=== PATIENT | male | born 1995 | race Caucasian/White ===

== ENCOUNTER 2017-11-19 16:58 | Emergency (ER) | payer OTHER ==
[~2017-11-19] VITALS: Ht 180.3 cm; Wt 65.7 kg
[2017-11-19 17:26] VITALS: TEMP 36.7; Ht 180.3 cm; Wt 65.7 kg
[2017-11-19] MEDS ORDERED: LISD30CA4 PO (17:54)
[2017-11-19 18:39] LABS: BASO % 0.5 %; BASO ABS # 0.03 K/uL (0-0.2); EOS % 1.8 %; EOS ABS # 0.11 K/uL (0-0.5); HEMATOCRIT 47.5 % (42-52); HEMOGLOBIN 16.1 g/dL (14.0-18.0); IG# 0.01 K/uL (0.00-0.02); LYMPH % 28.7 %; MEAN CELL VOLUME 91.7 fL (80-100); MEAN CORPUSCULAR HEMOGLOBIN 31.1 pg (25-34); MEAN CORPUSCULAR HGB CONC 33.9 g/dl (32-36); MEAN PLATELET VOLUME 11.2 fL (7.4-10.4); MONO % 8.9 %; MONO ABS # 0.56 K/uL (0.11-0.59); NEUT % 59.9 %; NEUT ABS # 3.77 K/uL (1.4-6.5); PLATELET COUNT 241 K/uL (130-400); RED CELL DISTRIBUTION WIDTH CV 12.6 % (11.5-14.5); RED CELL DISTRIBUTION WIDTH SD 42.7 fL (36.4-46.3); WHITE BLOOD COUNT 6.28 K/uL (4.8-10.8)
[2017-11-19 18:58] LABS: ALBUMIN 4.3 gm/dl (3.4-5.0); ALT/SGPT 34 U/L (12-78); AST/SGOT 20 U/L (15-37); BLOOD UREA NITROGEN 13 mg/dl (7-18); CALCIUM 9.3 mg/dl (8.5-10.1); CARBON DIOXIDE 28 mmol/L (21-32); GLUCOSE 89 mg/dl (70-99); POTASSIUM 4.1 mmol/L (3.5-5.1); SODIUM 136 mmol/L (136-145)
[2017-11-19 19:00] LABS: ALKALINE PHOSPHATASE 83 U/L (45-117); TOTAL PROTEIN 7.9 gm/dl (6.4-8.2)
[2017-11-19 19:10] VITALS: BP 156/85; PULSE 72; O2SAT 99
--- NOTE | 2017-11-19 19:38 | EMERGENCY ROOM VISIT NOTE ---
History First contact with patient: 17:33 Chief Complaint: OTHER COMPLAINT Stated Complaint: MANY DARK MARKING ON ABD AREA VERY PAINFUL History of Present Illness The patient is a 22 year old male who presents to the Emergency Room via private vehicle with complaints of "many dark markings on abdomen, very painful ". The patient states that upon returning from spring in [place] on Friday he started noticing some small dark patches on his skin. He states that they were first on his abdomen and they seem to be on the rest of his body. He denies any easy bleeding of the gums or rectal bleeding. None on the rest of his body. No pattern or even distribution. He notes a history of nosebleeds chronically but that is not new. He does note some alcohol consumption during the trip but nothing excessive. He does not believe these are bruises. He denies trauma. He denies any medical problems. No vision, breathing, digestion , urination, bowel movement or penile discharge noted. Review of Systems A complete 10-point Review of Systems was discussed with the patient, with pertinent positives and negatives listed in the History of Present Illness. All remaining Review of Systems questions can be considered negative unless otherwise specified. Past Medical/Surgical History No pertinent Family History No pertinent Social History Smoking Status: Current Every Day Smoker Pt. is a [employer] Current/Historical Medications Scheduled Lisdexamfetamine Dimesylate (Vyvanse), 30 MG PO DAILY Physical Exam Vital Signs Date Time Temp Pulse Resp B/P (MAP) Pulse Ox O2 Delivery O2 Flow Rate FiO2 11/19/17 19:10 72 16 156/85 99 Room Air 11/19/17 17:26 36.7 81 18 120/79 98 Room Air Physical Exam VITAL SIGNS - Vital signs and nursing notes were reviewed. Stable. GENERAL - 22-year-old male appearing his stated age who is in no acute distress. Communicates well with provider and answers questions appropriately. SKIN -there are various skin changes on the patient's anterior chest and abdomen and R biceps region. They are darker in nature. They are a dark brown. There is no symmetrical distribution or evidence of petechial rash. No bleeding from the skin. When I do press on these areas with an alcohol prep pad the darkness appears to fade with wiping with alcohol prep pad on some of the skin changes. The largest areas are about 3 cm in diameter on the patient' s right biceps region. There are a few on the chest which are centimeter in size. They are of different shapes. It appears that there was even one that is linear like a scratch. HEAD - NC/AT. EYES - Sclera anicteric. No hyphema. EARS - No deformities of external structures noted on gross examination bilaterally. No blood from the ears on my exam. NOSE - Midline and without cyanosis. No epistaxis or purulent drainage noted upon my exam, however later in the patient's stay he developed a minimal L nostril nosebleed. MOUTH/OROPHARYNX - Without perioral cyanosis. No skin changes intraorally. NECK - Neck with FROM. ABDOMEN - Abdominal contour normal without pulsations or visible masses. Very minimal anterior abdominal pain overlying the rectus abdominis musculature. No deep tenderness noted. EXTREMITIES - No clubbing or peripheral cyanosis. +5/5 strength noted in UE/LE bilaterally. NEUROLOGIC - Cranial nerves II through XII grossly intact. PSYCH - Pt is very pleasant and interacts well with examiner. Medical Decision & Procedures Laboratory Results 11/19/17 18:02 Red Blood Count 5.18, Mean Corpuscular Volume 91.7, Mean Corpuscular Hemoglobin 31.1, Mean Corpuscular Hemoglobin Concent 33.9, Mean Platelet Volume 11.2, Neutrophils (%) (Auto) 59.9, Lymphocytes (%) (Auto) 28.7, Monocytes (%) (Auto) 8.9, Eosinophils (%) (Auto) 1.8, Basophils (%) (Auto) 0.5, Neutrophils # (Auto) 3.77, Lymphocytes # (Auto) 1.80, Monocytes # (Auto) 0.56, Eosinophils # (Auto) 0.11, Basophils # (Auto) 0.03 11/19/17 18:02 Test 11/19/17 18:02 White Blood Count 6.28 K/uL (4.8-10.8) Red Blood Count 5.18 M/uL (4.7-6.1) Hemoglobin 16.1 g/dL (14.0-18.0) Hematocrit 47.5 % (42-52) Mean Corpuscular Volume 91.7 fL (80-100) Mean Corpuscular Hemoglobin 31.1 pg (25-34) Mean Corpuscular Hemoglobin Concent 33.9 g/dl (32-36) Platelet Count 241 K/uL (130-400) Mean Platelet Volume 11.2 fL (7.4-10.4) Neutrophils (%) (Auto) 59.9 % Lymphocytes (%) (Auto) 28.7 % Monocytes (%) (Auto) 8.9 % Eosinophils (%) (Auto) 1.8 % Basophils (%) (Auto) 0.5 % Neutrophils # (Auto) 3.77 K/uL (1.4-6.5) Lymphocytes # (Auto) 1.80 K/uL (1.2-3.4) Monocytes # (Auto) 0.56 K/uL (0.11-0.59) Eosinophils # (Auto) 0.11 K/uL (0-0.5) Basophils # (Auto) 0.03 K/uL (0-0.2) RDW Standard Deviation 42.7 fL (36.4-46.3) RDW Coefficient of Variation 12.6 % (11.5-14.5) Immature Granulocyte % (Auto) 0.2 % Immature Granulocyte # (Auto) 0.01 K/uL (0.00-0.02) Erythrocyte Sedimentation Rate 5 mm/hr (0-14) Anion Gap 5.0 mmol/L (3-11) Est Creatinine Clear Calc Drug Dose 120.7 ml/min Estimated GFR () 141.0 Estimated GFR (Non- 121.7 BUN/Creatinine Ratio 14.7 (10-20) Calcium Level 9.3 mg/dl (8.5-10.1) Total Bilirubin 0.4 mg/dl (0.2-1) Aspartate Amino Transf (AST/SGOT) 20 U/L (15-37) Alanine Aminotransferase (ALT/SGPT) 34 U/L (12-78) Alkaline Phosphatase 83 U/L (45-117) C-Reactive Protein < 0.29 mg/dl (0-0.29) Total Protein 7.9 gm/dl (6.4-8.2) Albumin 4.3 gm/dl (3.4-5.0) Globulin 3.6 gm/dl (2.5-4.0) Albumin/Globulin Ratio 1.2 (0.9-2) Medical Decision Patient was seen and evaluated as above. He has dark brown blotches on his skin that are small and are localized to his chest, upper abdomen and R bicep. There are around 10-15 small regions. Review was performed of nursing notes and vital signs. After obtaining a thorough history and physical examination the above work up was performed. I did elect to obtain a CBC and CMP. On exam these do not appear to be petechial in nature or from underlying coagulopathy. What these appear to be are either stains on the skin, or are hyperpigmented areas. They do not appear to be infectious. When I did try and wipe these off in case this was from stain, the one on the patient's right bicep did begin to lighten with an alcohol wipe. There was no petechial change or bleeding from this. CBC reveals no concerning leukocytosis or anemia. ESR normal at 5. Metabolic panel reveals no concerning electrolyte abnormality, kidney failure or liver failure. CRP negative. It is important to note that I do not suspect these being from a coagulopathy as a do not present as such. I was called to the patient room as the nurse informed that the patient would like to be discharged as the person that was driving him home had to leave. They went to the room the patient noted that he had to leave because his ride was leaving. I informed him that I can discharge him however I do recommend close follow-up with [facility] to further look into this or return with worsening. It is important to note that although in triage he noted severe abdominal pain on my exam it is very minimal in the abdominal musculature and there is no leukocytosis. I do not suspect any emergent cause. As he was being discharged he notes that he had a small nosebleed and I asked him if I could intervene and help with this and he noted that he has had these for many years and that it will go away soon. I informed him that I certainly do recommend follow-up will return with worsening. It is important that there is no easy bleeding of the gums, or rectal bleeding. The patient was educated upon management, had questions answered prior to discharge, and was discharged home in good condition. In the evaluation and treatment of this patient the following differential diagnoses were entertained: Coagulopathy, skin changes from sun, trauma, bacterial or fungal infection, among others. Impression Primary Impression: Rash/skin eruption Departure Information Dispostion Home / Self-Care Condition GOOD Referrals No Doctor, Assigned (PCP) [facility] Patient Instructions My [facility] Additional Instructions He was seen in the emergency department for skin changes. At this time your blood work does not show any emergent cause. I do recommend follow-up with [facility], number provided. Please return with any new/concerning symptoms. Thank you for your time.
== END 2017-11-19 19:40 | disposition home or self-care (01) ==
LOC: C.EDB 17:01 → C.EDD 19:40
DX: R21 Rash and other nonspecific skin eruption (principal); F17.210 Nicotine dependence, cigarettes, uncomplicated